=== PATIENT | female | born 1950 | race Caucasian/White ===

== ENCOUNTER 2020-04-01 08:47 | Day surgery (SDC) | payer OTHER, MEDICARE ==
[2020-03-25 13:23] LABS: Absolute Lymphocytes (CBC) 1.3 K/uL (0.7-4.9); Basophils % 1.1 % (0-1.3); Lymphocytes % 23.7 % (15.3-44.8); MPV 9.9 fL (7.6-11.3)
[2020-03-25 13:27] LABS: Urine Appearance CLEAR; Urine Bilirubin NEGATIVE (NEG); Urine Blood NEGATIVE (NEG); Urine Color YELLOW; Urine Glucose NEGATIVE (NEG); Urine Protein NEGATIVE (NEG)
[2020-03-25 13:27] LABS: Protime INR 1.02
[2020-03-25 13:29] LABS: Urine Microscopic Reflex NO UMIC
[2020-03-25 13:37] LABS: Albumin 3.8 g/dL (3.4-5.0); Bilirubin Direct 0.2 mg/dL (0-0.2); Bilirubin Total 0.4 mg/dL (0.2-1.0); Potassium 4.3 mmol/L (3.5-5.1); Protein, Total 7.9 g/dL (6.4-8.2)
[2020-04-01] MEDS ORDERED: CEFAZOLIN SODIUM 1 GM/VIAL ONE ×2 (09:33→14:12)
[2020-04-01] MEDS ORDERED: NA CHLORIDE 0.9% 100 ML IV ONE (09:33)
[2020-04-01] MEDS ORDERED: SCOPOLAMINE HYDROBROMIDE PATCH TD ONE (09:37)
[2020-04-01] MEDS ORDERED: Ringers Lactate 1,000 ML IV ONE ×4 (09:37→15:22)
[2020-04-01] MEDS ORDERED: propofoL 200 MG/20 ML VIAL IV ONE (09:38)
[2020-04-01] MEDS ORDERED: ROCURONIUM 50 MG/5 ML VIAL IV ONE (09:38)
[2020-04-01] MEDS ORDERED: dexAMETHasone 4 MG/ML VIAL ONE (09:39)
[2020-04-01] MEDS ORDERED: FENTANYL CITR 250 MCG/5 ML ONE (09:39)
[2020-04-01] MEDS ORDERED: LIDOCAINE 2% MPF 5 ML VIAL ONE (09:39)
[2020-04-01] MEDS ORDERED: ONDANSETRON 4 MG/2 ML VIAL ONE ×2 (09:39→16:46)
[2020-04-01] MEDS ORDERED: MIDAZOLAM HCL 2 MG/2 ML INJ ONE (09:39)
[2020-04-01] MEDS: CEFAZOLIN/SWI 2gm 2 GM/20 ML SYR ONE ×2 (10:52→11:05)
[2020-04-01] MEDS: BUPIVACAINE 0.25% PF 30 ML VIAL ONE ×2 (11:32→11:41)
[2020-04-01] MEDS ORDERED: GLYCOPYRROLATE 0.2 MG/ML SYR ONE ×2 (11:53→15:47)
[2020-04-01] MEDS: VASOPRESSIN 20 UNIT/ML VIAL ONE ×2 (12:17→13:30)
[2020-04-01] MEDS ORDERED: EPHEDRINE SULF 50 MG/ML VIAL ONE (13:35)
[2020-04-01] MEDS ORDERED: NA CHLORIDE 0.9% 0 ML ONE (14:10)
[2020-04-01] MEDS ORDERED: NEOSTIGMINE 1 MG/ML -5 ML ONE (15:47)
[2020-04-01] MEDS ORDERED: ACETAMINOPHEN 500 MG TAB PO PRN (15:57)
[2020-04-01] MEDS ORDERED: PROMETHAZINE 25 MG TABLET PO PRN (15:57)
[2020-04-01] MEDS: Ringers Lactate 1,000 ML IV SCH (16:00)
--- NOTE | 2020-04-01 16:18 | P.BOP ---
Preoperative diagnosis: [id number]/ant/post wall prolapse/KRISTI Postoperative diagnosis: same post enterocele Primary procedure: TLH BSO R SSLF colpopexy,A/P repair, MUS,post enterocele repair Secondary procedure: perinaeorrhaphy Jewelry Polisher: Janine Jose Estimated blood loss: 100 Specimen: ut tubes and ovaries Anesthesia: General Complications: None Drain(s): Urinary catheter Implants: TVT-O Fluids & blood products: 2000 lr Transferred to: Recovery Room Condition: Good
[2020-04-01] MEDS: MORPHINE 4 MG/ML SYR ONE ×2 (16:35→16:45)
[2020-04-01] MEDS ORDERED: IBUPROFEN 600 MG TAB PO PRN (17:09)
[2020-04-01] MEDS ORDERED: MORPHINE 4 MG/ML SYR IV PRN (17:10)
[2020-04-01 18:28] VITALS: O2SAT 90; BMI 28.3
[2020-04-02 07:18] LABS: Absolute Lymphocytes (CBC) 1.2 K/uL (0.7-4.9); Basophils % 0.2 % (0-1.3); Hematocrit 32.5 % (36.0-45.0); MPV 9.2 fL (7.6-11.3); RBC Red Blood Cell Count 3.56 M/uL (3.86-4.86)
[2020-04-02] MEDS ORDERED: PANTOPRAZOLE 40MG TABLET PO SCH (07:30)
[2020-04-02 07:32] LABS: BUN Blood Urea Nitrogen 8 mg/dL (7-18); Bicarbonate 28 mmol/L (21-32); Glucose Level 108 mg/dL (74-106); Potassium 4.3 mmol/L (3.5-5.1); Sodium Level 140 mmol/L (136-145)
[2020-04-02] MEDS: FLUOXETINE 20 MG CAP PO SCH ×2 (08:19→09:00)
[2020-04-02] MEDS: ROSUVASTATIN 10 MG TAB PO SCH ×2 (08:19→09:00)
[2020-04-02 08:28] VITALS: BP 108/57; TEMP 97.8
[2020-04-02] MEDS ORDERED: FLUOXETINE 10 MG CAP PO SCH (09:00)
[2020-04-02] MEDS ORDERED: TOLTERODINE TARTRATE 1 MG PO SCH (09:00)
[2020-04-02] MEDS ORDERED: HOME MED 1 EA UNK (Rosuvastatin Calcium [Rosuvastatin Calcium] 20 MG) PO SCH (09:00)
[2020-04-02] MEDS ORDERED: DOCUSATE NA 100 MG CAP PO SCH (09:00)
[2020-04-02] MEDS ORDERED: HOME MED 1 EA UNK (Omeprazole Magnesium [Prilosec Otc] 20 MG) PO SCH (09:00)
[2020-04-02] MEDS: Ringers Lactate 1,000 ML IV SCH (09:15)
--- NOTE | 2020-04-02 23:00 | OP ---
Date of Procedure: 04/01/2020 Surgeon: Rosi Carlton MD Central Station Operator: Janine Jose. Preoperative Diagnoses: Stage II incomplete uterovaginal prolapse, rectocele, and stress urinary inc ontinence. Postoperative Diagnoses: Stage II incomplete uterovaginal prolapse, rectocele, and stress urinary in continence. Procedures Performed: Total laparoscopic hysterectomy, bilateral salpingo-oophorectomy, vaginal righ t sacrospinous ligament fixation colpopexy, anterior-posterior repair, posterior enterocele repair, p erineorrhaphy, and mid urethral sling and cystoscopy (TVT-O). Anesthesia: General endotracheal. Intraoperative Consultation: None. Estimated Blood Loss: 100. Urine Output: 1 L. Specimens: Uterus, bilateral tubes and ovaries. Complications: None. Drains: Harris catheter and vaginal packing. Condition: Stable. Findings: Her POP-Q is 0, 0, -2, 5, moderate, 7, -1, -1, -1. Posterior enterocele significant, very thin. Uterosacrals were not very significant. Unable to perform a uterosacral colpopexy and so rig ht posterior approach sacrospinous was performed. Indications: She is a 69-year-old lady presented with prolapse, irritative bladder symptoms, stress urinary incontinence, and posterior vaginal bulge as well. She was evaluated with a transvaginal ultrasound. No abnormal masses on cystoscopy, just trabeculati ons consistent with overactive bladders. Similar bilateral pain in ureters. Urodynamics were perfor med, had continuous fluctuating flow with a low capacity bladder pressures, mostly normal. Valsalva leak point pressure at 85 cm of water. Urethral hypermobility was noted significantly. CMG normal. On the urodynamics PFS, the volume she held was very small, 200, and her PVR was closed to half of i t. She was placed on vaginal estrogen therapy to make sure that she had a medical clearance. Pessar y, vaginal, and laparoscopic procedures were all discussed, especially discussed the hysterectomy wit h sacral colpopexy, compared it to vaginal fixation with vaginal hysterectomy or laparoscopic hystere ctomy followed by complete anterior-posterior repair, anterior compartment repair with biologic graft augmentation versus all takotna tissue repair. The patient preferred to not have any mesh after full understanding of the efficacy and recurrence rate compared to sacral colpopexy and takotna tissue rep air as biologic graft does not have any significant improvement over takotna tissue repair as the horacio ent shows to have a vaginal repair and preferred to avoid synthetic mesh for apical repair, proceeded to consent her for hysterectomy either vaginal or laparoscopic, then rest of the repair vaginally an d she understood the risk of recurrence about 20-30% in the future. She was accepting of this, fully understanding of the procedural recovery times and pain. Description Of Procedure: After consenting her, she was taken back to OR, placed in supine fashion o n the operating table, general anesthesia was given, 2 g of Ancef were given, SCDs were started, posi tioning was checked. Abdomen, vulva, vagina, and perineum prepped and draped in a sterile fashion. Harris placed to drain the bladder. Then, medium VCare introduced into the uterus and fixed in place. A 1 cm infraumbilical incision was made with a scalpel using the open laparoscopy technique. Fascia was incised, tagged with 0 Vicryl sutures. Peritoneum entered sharply. S-retractors were placed. S ite of entry was checked after insufflating the abdominal cavity. Upper abdominal surface was comple tely unremarkable. Slightly scarred right liver edge. Unremarkable gallbladder. The patient was pl aced in Trendelenburg. A 5 mm left lower quadrant and 10 mm suprapubic ports were placed under direc t vision. After replacing all the trocars, I was able to visualize the ureters, pack the bowel in th e upper abdomen. Then looking at the both the ovaries and tubes, uterosacrals with a cyst on the rig ht was slightly better than the left, but it was a difficult poor uterosacral support here to be pick ed up and stitched to the vaginal apex over and decided to finish the hysterectomy and then do a vagi nal repair. LigaSure taken, left infundibulopelvic ligament taken down with this, then mesosalpinx dissected. Ro und ligament taken down. Broad ligament taken down. Vessels were skeletonized by opening up the ant erior peritoneum, raising the bladder flap, and going down to the uterosacral insertion of the uteros acral or proximal vaginal cuff. Once the vessels were taken down as well, then on the opposite side similar dissection was performed taking down the IP, mesosalpinx, round ligament, broad ligament, the n skeletonizing the vessels and opening the peritoneum connecting the bladder flap anteriorly and pos teriorly, connecting to the other side on the posterior vaginal wall. Then, vessels were taken down. There was not much of cardinal ligament. Circumferential colpotomy with a monopolar hook blade, de tached and removed through the vagina all the specimens. Thorough irrigation and suction were performed. 0 PDS was used for simple angle sutures and 3 figure -of-eight in the center encompassing the entire vaginal thickness including the connective tissue in both and anterior posterior wall as best as possible. Thorough irrigation and suction were performed. No evidence of any electrical, mechanical, or therma l injury to the ureters. The patient was then injected at the level of the skin and the fascia with the help of Marcaine entry and exit. Then, fascia closed at the umbilicus with both ends of the tag sutures tied together and a simple 0 Vicryl suture at the suprapubic fascial incision. All skin inci sions closed with the help of interrupted 4-0 Vicryl sutures and this part was completed. The patient was placed in Trendelenburg, Harris drained, and then clamped with a Yesenia and retracted s uperiorly. The anterior midline was held with 2 Allis clamps at the urethrovesical junction and then right distal to the apical repair or apical closure. Then, dilute vasopressin was injected here in the midline as well on other sides. Vaginal incision, epithelium, sub-epithelium were incised with t he help of a scalpel and then opened up with the help of scissors. Then, after dissecting the bladde r away, still leaving the vaginal connective tissue, subepithelial connective tissue on the bladder, this was dissected away from the vaginal epithelium. Vaginal epithelium was trimmed 0.5 cm on each s kyle and then brought together in the midline with a running horizontal mattress suture using 2-0 Vicr yl. The inner aspect of the connective tissue was brought together in a continuous running fashion w ith the help of 2-0 PDS and a Yesenia stitch was placed at the bladder neck with distal most part of th is dissection from [id number]. The mid urethral area was picked up with the help of 2 Allis clamps, injected with dilute vasopressin . The patient's legs were placed in high lithotomy. Then, 1 cm mid urethral incision made with a sc alpel. Dissection was performed to the ipsilateral obturator space hugging the inferior pubic ramus, creating a tunnel for the sling. Then, after perforating the obturator membrane, the track was expa nded by opening up the scissors. Similar dissection performed on the left side as well and done with out any complications. Then, the wing guide was placed, TVT-O spike was passed the usual angle huggi ng the inferior pubic ramus and exiting slightly above the horizontal line, dropped at the level of t he external urethral meatus about a centimeter lateral to the groin fold steering clear of the tendon . Then, on the left side, similar pass was taken without any problems. Then, plastic dilators were cut, sheaths were held with the help of Yesenia's, tensioning in the center with help of [place]. Then, s heaths were pulled out. The mesh was trimmed and flushed with the skin on both sides. After tension ing was ensured on visual examination and was satisfactory, then irrigation with antibiotic solution was done and vaginal epithelial closure was performed with the help of a continuous running 3-0 Vicry l suture in a locked fashion. Harris was removed and cystoscopy was not performed, wanted to do this after the colpopexy. Allis clamps were placed on either side of the vaginal hymenal area. There was a defect in the dista l posterior wall as well as a posterior enterocele on examination. Rectovaginal exam was performed. Gloves were changed. The midline vaginal epithelium was picked up in the center almost dividing the proximal and distal wilson lf. A erik-shaped incision was made after injecting with dilute vasopressin in this area and on t he perineum, then the vaginal epithelium was skimmed off leaving the remnant of the connective tissue here. Then, dissection was performed at the level of the perineum exposing the transverse perinei. Then, dissected the posterior rectovaginal septum off the vaginal epithelial tissues all the way to t he apex and posterior enterocele was also dissected. There was one area that appeared to be torn giv ing access into the peritoneal cavity. This was closed with the help of 3-0 Vicryl in a [id number] ght fashion. Then, the enterocele was reduced with the help of 3-0 Monocryl in a pursestring fashion . Then, dissection was performed to the right ischial spine. Once the ischial spine was palpated, t he sacrospinous ligament was cleaned up through the coccygeus muscle and the rectum swept medially by going posterior and medial to the ischial spine towards the coccyx. After identifying the mid sacrospinous ligament, Capio device was taken with Prolene sutures x2, 1 in the center of the sacrospinous and 1 closer to the ischial spine about a centimeter away. Two stitc hes were taken and these were held on 2 separate clamps identifying the medial and lateral aspects. Then, the distal remnant of the uterosacral or the posterior vaginal wall were taken on the right and left side, and the sutures with the Prolene were passed through here without exposing them into the vaginal canal and then they held back on clamps. The distal 1/2 of the rectovaginal septum was repai red with the help of 2-0 PDS in a continuous running fashion putting back together the torn distal as pect in an inverted L-shaped fashion. Here the connective tissue was sutured together, rectovaginal exam was performed and it appeared to be very well bolstered. However, the proximal half still was w eak, but there was not enough connective tissue to pull it all the way to the apex. The perineal body was also reconstructed with the help of the PDS suture. Once all this was complete , there was excellent pull together here without narrowing the genital hiatus and the diameter also w as made sure that it was kept optimal. The vaginal epithelium was trimmed with a Yesenia to bring the edges together nicely and make sure that it would close without excessive tension. Then, the apical sutures were tied bringing the apex of the vagina to the sacrospinous ligament, the medial one first and then the lateral one. The sutures were cut appropriately leaving longer tails. Then, vaginal cl osure of the epithelium was conducted with the help of 2-0 Vicryl in a continuous running horizontal mattress fashion all the way down to the perineum and tied after going back inside the hymenal approx imated area. Rectal exam was performed with no sutures or trauma. After changing the gloves, Harris was removed, c ystoscopy was performed, and no evidence of any trauma to the bladder. Both ureteric orifices were w ell visualized and good jets of urine from both. No foreign body seen in the areas where the sling w ould be visible if there was a perforation. The bladder was then drained after the cystoscope was re moved. Harris was replaced. Vaginal packing was placed. The patient was recovered from anesthesia. Instrument and sponge counts x3 were correct at the end of the case. The patient tolerated the proc edure well. She will follow up with me in 1 week. She will be placed in postop outpatient day surge ry in [facility]. Harris and packing to be removed in the morning, and voiding trials and if she fa ils, goes home with a catheter and Macrobid. Regular diet, bowel regimen, vaginal estrogen cream. A ll reviewed with the and findings in the procedure. ROBSON/PRINCESS Voice ID: [id number] Report ID: [id number]
== END 2020-04-02 11:25 | disposition home or self-care (01) ==
LOC: OR 08:47 → 2ND-WC 16:00 → OR 04-02 11:25
PROVIDERS: ATTEND Obstetrics & Gynecology
PROC: 0UQF0ZZ Repair Cul-de-sac, Open Approach (ICD-10-PCS; principal; 2020-04-02)
PROC: 0JUC0JZ Supplement of Pelvic Region Subcutaneous Tissue and Fascia with Synthetic Substitute, Open Approach (ICD-10-PCS; 2020-04-02)
PROC: 0JQC0ZZ Repair Pelvic Region Subcutaneous Tissue and Fascia, Open Approach (ICD-10-PCS; 2020-04-02)
PROC: 0WQNXZZ Repair Female Perineum, External Approach (ICD-10-PCS; 2020-04-02)
PROC: 0USG7ZZ Reposition Vagina, Via Natural or Artificial Opening (ICD-10-PCS; 2020-04-02)
PROC: 0UT94ZZ Resection of Uterus, Percutaneous Endoscopic Approach (ICD-10-PCS; 2020-04-02)
PROC: 0UT24ZZ Resection of Bilateral Ovaries, Percutaneous Endoscopic Approach (ICD-10-PCS; 2020-04-02)
PROC: 0UT74ZZ Resection of Bilateral Fallopian Tubes, Percutaneous Endoscopic Approach (ICD-10-PCS; 2020-04-02)
PROC: 0TSD0ZZ Reposition Urethra, Open Approach (ICD-10-PCS; 2020-04-02)
DX: N81.2 Incomplete uterovaginal prolapse (principal); N39.3 Stress incontinence (female) (male); N32.81 Overactive bladder; N95.2 Postmenopausal atrophic vaginitis; N83.8 Other noninflammatory disorders of ovary, fallopian tube and broad ligament; N80.0 Endometriosis of uterus; E78.5 Hyperlipidemia, unspecified; F41.9 Anxiety disorder, unspecified; M06.9 Rheumatoid arthritis, unspecified; K21.9 Gastro-esophageal reflux disease without esophagitis; Z20.828 Contact with and (suspected) exposure to other viral communicable diseases; Z80.9 Family history of malignant neoplasm, unspecified; Z82.49 Family history of ischemic heart disease and other diseases of the circulatory system
CPT/HCPCS: 57265; 57267; 57282; 58571; 57288; 85025 ×2; 80048; 36415 ×2; 86900; 86850; 85610; 86901; 88307; 85730; 81003; 82248; 80053; U0002; J2704; J1100; J2250; J3010; J2710; J0690 ×3; J7120 ×6; J2405 ×2; J7030